=== PATIENT | male | born 1955 | race Hispanic/Latino ===

== ENCOUNTER 2017-03-12 17:36 | Emergency (ER) | payer SELFPAY ==
[2017-03-12] MEDS ORDERED: IBUPROFEN 600 MG TABLET ONE (17:44)
== END 2017-03-12 18:26 | disposition home or self-care (01) ==
LOC: EDH 17:36
DX: M23.92 Unspecified internal derangement of left knee (principal)
CPT/HCPCS: 29505; 73562